=== PATIENT | male | born 1960 | race Caucasian/White ===

== ENCOUNTER 2022-04-10 08:41 | Day surgery (SDC) | payer OTHER ==
[~2022-04-10] VITALS: Ht 165.1 cm; Wt 73.9 kg
[2022-04-10] MEDS ORDERED: LIDOCAINE 2% 100 MG/5 ML UJET TP ONE (12:39)
[2022-04-10] MEDS ORDERED: fentaNYL citrate 0.05 MG/ML VIAL ONE (12:39)
[2022-04-10] MEDS ORDERED: fentaNYL citrate 0.05 MG/ML VIAL IVP ONE (13:35)
== END 2022-04-10 13:36 | disposition home or self-care (01) ==
LOC: MOR 08:41 → MMU 08:50 → MOR 13:36
PROVIDERS: ATTEND Internal Medicine Gastroenterology
DX: Z12.11 Encounter for screening for malignant neoplasm of colon (principal); D12.3 Benign neoplasm of transverse colon; D12.8 Benign neoplasm of rectum; K64.9 Unspecified hemorrhoids; E78.5 Hyperlipidemia, unspecified; E11.9 Type 2 diabetes mellitus without complications; Z20.822 Contact with and (suspected) exposure to COVID-19; Z87.891 Personal history of nicotine dependence; Z79.84 Long term (current) use of oral hypoglycemic drugs; Z79.899 Other long term (current) drug therapy
CPT/HCPCS: 45385; 82948; 87426; J3010